=== PATIENT | female | born 1970 | race Two or more races ===

== ENCOUNTER 2021-01-09 21:27 | Emergency (ER) | payer OTHER ==
[~2021-01-09] VITALS: Ht 172.7 cm; Wt 82.0 kg
[2021-01-09 23:30] VITALS: BP 130/93
== END 2021-01-09 23:31 ==
LOC: ER 21:27
DX: R68.89 Other general symptoms and signs (principal)
CPT/HCPCS: 36415; 80320; 99283; G0480